=== PATIENT | female | born 2000 | race Hispanic/Latino ===

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

== ENCOUNTER 2020-04-22 21:33 | Emergency (ER) | payer BC, SELFPAY ==
--- OUTSIDE RECORDS SUMMARY | 2020-04-22 21:35 | XMS REPORT | Continuity of Care Document ---
:2000 Author Organization [facility] t Address [address] [place] [address] Care Team Providers Name Role Phone Brianne Guerrero Attending Clinician Pob1, Acute [facility] Attending Clinician Unavailable Ce Connell Attending [...] Facility Department ID 2019-07-20 2019-07-20 Letter Ariel [facility] [id number] [id number] 00:00:00 00:00:00 (Out) [facility] [id number] [place] [id number] [place] [phone] nal 044 [address] 2019-07-20 2019-07-20 Telephone TALON George [id number] 00:00:00 00:00:00 [facility] [id number] [place] [id number] [place] [phone] nal 044 [address] 2019-07-19 2019-07-19 Urgent Pob1, Acute [facility] [id number] 08:36:26 09:24:[id number] [place] [id number] [facility] [phone] nal 044 [address] 2018-11-15 2018-11-15 Emergency [facility] [id number] 11:07:44 12:26:00 Lisa Cardenas [id number] [place] [id number] [place] [phone] Results This patient has no known results.
[2020-04-22] MEDS ORDERED: ALBUTEROL INHALER 60 PUFF/8 GM IH ONE (23:28)
[2020-04-22] MEDS ORDERED: dexAMETHasone 10 MG/ML VIAL ONE (23:28)
[2020-04-22] MEDS ORDERED: HYDROCODONE/CHLORPHEN 5 ML/OSYR ONE (23:28)
[2020-04-23 00:11] LABS: SARS-COV-2 RT PCR POSITIVE (NEGATIVE)
--- NOTE | 2020-04-23 00:15 | EDPHYS ---
Physician Documentation [facility] Name: Jasmina Campbell Age: 19 yrs Sex: Female : 2000 Arrival Date: 04/22/2020 Time: 21:33 Bed 7 Private MD: ED Physician Venkat Bonds HPI: 04/22 23:06 This 19 yrs old Female presents to ER via Ambulatory with complaints of pm1 Shortness Of Breath. 23:06 The patient or guardian reports cough, with no sputum. Onset: The symptoms/episode pm1 began/occurred 3 day(s) ago. Severity of symptoms: in the emergency department the symptoms are unchanged. Modifying factors: The symptoms are alleviated by nothing, the symptoms are aggravated by nothing. Associated signs and symptoms: Pertinent positives: subjective fever, body aches, Pertinent negatives: diarrhea, ear ache, nausea, vomiting. The patient has not experienced similar symptoms in the past. The patient has not recently seen a physician. 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 - Social history:: Smoking status: Smoking status: Patient/guardian denies using tobacco, Patient/guardian denies using alcohol, street drugs. ROS: 23:06 Back: Negative for injury and pain, : Negative for injury, bleeding, discharge, and pm1 swelling, MS/Extremity: Negative for injury and deformity, Skin: Negative for injury, rash, and discoloration. 23:06 Neuro: Negative for headache, weakness, numbness, tingling, and seizure. 23:06 Constitutional: Positive for subjective fever. 23:06 ENT: Positive for sore throat, Negative for ear pain. 23:06 Cardiovascular: Positive for chest pain, with cough, Negative for palpitations. 23:06 Respiratory: Positive for cough, shortness of breath. 23:06 Abdomen/GI: Positive for nausea, Negative for vomiting, diarrhea, constipation. Exam: 23:06 Constitutional: This is a well developed, well nourished patient who is awake, alert, pm1 and in no acute distress. Head/Face: Normocephalic, atraumatic. ENT: Nares patent. No nasal discharge, no septal abnormalities noted. Tympanic membranes are normal and external auditory canals are clear. Oropharynx with no redness, swelling, or masses, exudates, or evidence of obstruction, uvula midline. Mucous membranes moist. 23:06 Skin: Warm, dry with normal turgor. Normal color with no rashes, no lesions, and no evidence of cellulitis. MS/ Extremity: Pulses equal, no cyanosis. Neurovascular intact. Full, normal range of motion. 23:06 Cardiovascular: Exam negative for acute changes, Rate: normal, Rhythm: Pulses: no pulse deficits are appreciated. 23:06 Respiratory: Exam negative for acute changes, respiratory distress, shortness of breath, Breath sounds: are clear throughout. 23:06 Neuro: Exam negative for acute changes, Orientation: is normal, Mentation: is normal, Motor: is normal, Gait: is steady, at a normal pace, without difficulty. Vital Signs: 21:52 BP 124 / 94; Pulse 98; Resp 19; Temp 98.5; Pulse Ox 96% ; Weight 90.72 kg; Height 5 ft. rr5 3 in. (160.02 cm); Pain 6/10; 04/23 00:27 BP 120 / 80; Pulse 89; Resp 18; Pulse Ox 97% on R/A; mg2 04/22 21:52 Body Mass Index 35.43 (90.72 kg, 160.02 cm) rr5 MDM: 04/22 22:52 Patient medically screened. pm1 04/23 00:12 Data reviewed: vital signs. Data interpreted: Pulse oximetry: on room air is 96 %. pm1 Interpretation: normal. Counseling: I had a detailed discussion with the patient and/or guardian regarding: the historical points, exam findings, and any diagnostic results supporting the discharge/admit diagnosis, lab results, radiology results, the need for outpatient follow up, to return to the emergency department if symptoms worsen or persist or if there are any questions or concerns that arise at home. 04/22 23:04 Order name: COVID-19 pm1 04/22 23:04 Order name: Flu pm1 04/22 23:04 Order name: Strep; Complete Time: 23:51 pm1 04/22 23:51 Order name: Throat Culture EDMS 04/22 23:04 Order name: CXR XRAY pm1 04/22 23:04 Order name: Droplet/Contact Precautions; Complete Time: 23:04 pm1 04/22 23:04 Order name: Labs collected and sent; Complete Time: 23:04 pm1 04/22 23:04 Order name: O2 Per Protocol; Complete Time: 23:04 pm1 04/23 00:12 Order name: COVID-19/FLU A+B; Complete Time: 00:16 EDMS Administered Medications: 04/22 23:17 Drug: Albuterol HFA Inhaler 2 puffs Route: Inhalation; mg2 04/23 00:10 Follow up: Response: No adverse reaction mg2 04/22 23:18 Drug: Tussionex Pennkinetic ER 5 ml Route: PO; mg2 04/23 00:10 Follow up: Response: No adverse reaction mg2 04/22 23:18 Drug: Decadron 10 mg Route: IM; Site: right deltoid; mg2 04/23 00:10 Follow up: Response: No adverse reaction mg2 Disposition: 04:04 Co-signature as Attending Physician, Venkat Bonds MD did not see or evaluate patient. ps1 Signature for administrative purposes. . Disposition: 04/23/20 00:15 Discharged to Home. Impression: Coronavirus infection, unspecified, Acute upper respiratory infection, unspecified. - Condition is Stable. - Discharge Instructions: COVID-19. - Prescriptions for Albuterol Sulfate 90 mcg/actuation - inhale 1-2 puff by INHALATION route every 4-6 hours; 1 Inhaler. Guaifenesin AC 10- 100 mg/5 mL Oral Liquid - take 10 milliliter by ORAL route every 4 hours As needed; 240 milliliter. Zofran 4 mg Oral Tablet - take 1 tablet by ORAL route every 12 hours As needed; 20 tablet. - Medication Reconciliation Form, Thank You Letter, Antibiotic Education, Prescription Opioid Use, Work release form form. - Follow up: Emergency Department; When: As needed; Reason: Worsening of condition. Follow up: Private Physician; When: 2 - 3 days; Reason: Recheck today's complaints, Continuance of care, Re-evaluation by your physician. - Problem is new. - Symptoms have improved. Signatures: Dispatcher [employer] [facility] Jose Roberto Villagomez, POCKET CUTTER POCKET CUTTER pm1 Venkat Bonds MD MD ps1 Narayan Marino RN RN mg2 Larry Elias RN RN rr5 Corrections: (The following items were deleted from the chart) 04/22 23:24 23:05 CORONAVIRUS ordered. [facility] 23:24 23:05 Influenza Screen (A ordered. [facility] 04/23 00:27 00:15 04/23/2020 00:15 Discharged to Home. Impression: Coronavirus infection, mg2 unspecified; Acute upper respiratory infection, unspecified. Condition is Stable. Forms are Medication Reconciliation Form, Thank You Letter, Antibiotic Education, Prescription Opioid Use. Follow up: Emergency Department; When: As needed; Reason: Worsening of condition. Follow up: Private Physician; When: 2 - 3 days; Reason: Recheck today's complaints, Continuance of care, Re-evaluation by your physician. Problem is new. Symptoms have improved. pm1
--- NOTE | 2020-04-23 00:15 | ER ---
Nurse's Notes [facility] Name: Jasmina Campbell Age: 19 yrs Sex: Female : 2000 Arrival Date: 04/22/2020 Time: 21:33 Bed 7 Private MD: Diagnosis: Coronavirus infection, unspecified;Acute upper respiratory infection, unspecified Presentation: 04/22 21:52 Chief complaint: Patient states: I am having trouble breathing , chest pain, headache, rr5 cough and nauseous started 3 days ago. been tested positive for COIVD 3 weeks ago. Coronavirus screen: Client denies travel out of the [place] in the last 14 days. cough unrelated to allergies, fatigue, fever, shortness of breath, Client presents with at least one sign or symptom that may indicate coronavirus-19. Standard/surgical mask placed on the client. Provider contacted for isolation considerations. Client reports previous positive COVID test result. Ebola Screen: Patient negative for fever greater than or equal to 101.5 degrees Fahrenheit, and additional compatible Ebola Virus Disease symptoms Patient denies exposure to infectious person. Patient denies travel to an Ebola-affected area in the 21 days before illness onset. Initial Sepsis Screen: Does the patient meet any 2 criteria? HR > 90 bpm. No. Patient's initial sepsis screen is negative. Does the patient have a suspected source of infection? Yes: Productive cough/pneumonia. Risk Assessment: Do you want to hurt yourself or someone else? Patient reports no desire to harm self or others. Onset of symptoms was April 19, 2020. 21:52 Method Of Arrival: Ambulatory rr5 21:52 Acuity: LEFTY 3 rr5 Triage Assessment: 22:46 General: Appears in no apparent distress. comfortable, Behavior is calm, cooperative. mg2 Respiratory: Onset: The symptoms/episode began/occurred gradually, the patient has mild shortness of breath. 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 - Social history:: Smoking status: Smoking status: Patient/guardian denies using tobacco, Patient/guardian denies using alcohol, street drugs. Screenin:45 Abuse screen: Denies threats or abuse. Denies injuries from another. Nutritional mg2 screening: No deficits noted. Tuberculosis screening: No symptoms or risk factors identified. Fall Risk None identified. Assessment: 22:45 General: Appears in no apparent distress. comfortable, Behavior is calm, cooperative. mg2 Pain: Complains of pain in chest. Neuro: Level of Consciousness is awake, alert, obeys commands, Oriented to person, place, time, situation. Cardiovascular: Capillary refill < 3 seconds Patient's skin is warm and dry. Respiratory: Airway is patent Respiratory effort is even, unlabored, Respiratory pattern is regular, symmetrical. Respiratory: Reports shortness of breath. GI: No signs and/or symptoms were reported involving the gastrointestinal system. : No signs and/or symptoms were reported regarding the genitourinary system. EENT: No signs and/or symptoms were reported regarding the EENT system. Derm: Skin is intact, is healthy with good turgor, Skin is pink, warm \T\ dry. normal. Musculoskeletal: Circulation, motion, and sensation intact. Capillary refill < 3 seconds. Vital Signs: 21:52 BP 124 / 94; Pulse 98; Resp 19; Temp 98.5; Pulse Ox 96% ; Weight 90.72 kg; Height 5 ft. rr5 3 in. (160.02 cm); Pain 6/10; 04/23 00:27 BP 120 / 80; Pulse 89; Resp 18; Pulse Ox 97% on R/A; mg2 04/22 21:52 Body Mass Index 35.43 (90.72 kg, 160.02 cm) rr5 ED Course: 04/22 21:33 Patient arrived in ED. cl3 21:55 Triage completed. rr5 21:56 Arm band placed on right wrist. rr5 22:44 Narayan Marino, JOSE is Primary Nurse. mg2 22:45 Patient has correct armband on for positive identification. mg2 22:46 No provider procedures requiring assistance completed. mg2 22:52 Jose Roberto Villagomez NP is PHCP. pm1 22:52 Venkat Bonds MD is Attending Physician. pm1 23:20 CXR XRAY In Process Unspecified. EDMS 04/23 00:27 Patient did not have IV access during this emergency room visit. mg2 Administered Medications: 04/22 23:17 Drug: Albuterol HFA Inhaler 2 puffs Route: Inhalation; mg2 04/23 00:10 Follow up: Response: No adverse reaction mg2 04/22 23:18 Drug: Tussionex Pennkinetic ER 5 ml Route: PO; mg2 04/23 00:10 Follow up: Response: No adverse reaction mg2 04/22 23:18 Drug: Decadron 10 mg Route: IM; Site: right deltoid; mg2 04/23 00:10 Follow up: Response: No adverse reaction mg2 Outcome: 00:15 Discharge ordered by MD. pm1 00:27 Discharged to home ambulatory. mg2 00:27 Condition: good 00:27 Discharge instructions given to patient, Instructed on discharge instructions, follow up and referral plans. medication usage, Demonstrated understanding of instructions, follow-up care, medications, Prescriptions given X 3. 00:27 Patient left the ED. mg2 Signatures: Dispatcher [employer] EDMS Jose Roberto Villagomez NP KOSHER SEALER pm1 Narayan Marino RN RN mg2 Larry Elias RN RN rr5 Dm Garcia cl3 Corrections: (The following items were deleted from the chart) 04/22 21:57 21:52 Chief complaint: Patient states: I am having trouble breathing , headache, cough rr5 and nauseous started 3 days ago. been tested positive for COIVD 3 weeks ago rr5
[2020-04-23 00:38] VITALS: TEMP 98.5
[2020-04-23 00:44] VITALS: BP 120/80; O2SAT 97
--- NOTE | 2020-04-23 06:56 | RAD REPORT ---
EXAM DESCRIPTION: RAD - Chest Single View - 04/22/2020 11:21 pm CLINICAL HISTORY: Cough;SOB, COVID positive 3 weeks earlier COMPARISON: Portable October 19 TECHNIQUE: AP portable chest image was obtained 04/22/2020 11:21 pm . FINDINGS: No dense peripheral mass or consolidation. No failure or volume overload. No definitive fi ndings that would indicate a COVID-19 pneumonia. Very mild ground-glass opacities can be occult on a shallow inspiration portable exam. Follow-up CT imaging could be obtained if it would alter medical m anagement. Trachea is midline. Heart and vasculature are normal. No measurable pleural effusion and n o pneumothorax. No acute bony abnormality seen. No acute aortic findings suspected. IMPRESSION: No acute cardiopulmonary process. No definitive evidence for a COVID-19 pneumonia. If clinically warranted, CT imaging of the chest cou ld be obtained to more sensitively assess the lung parenchyma.
== END 2020-04-23 00:27 | disposition home or self-care (01) ==
LOC: ER 21:33
DX: U07.1 COVID-19 (principal); J06.9 Acute upper respiratory infection, unspecified
CPT/HCPCS: 87070; 87081; 0240U; 71045; J1100; 96372; 99284

== ENCOUNTER 2020-06-10 23:36 | Emergency (ER) | payer BC ==
--- OUTSIDE RECORDS SUMMARY | 2020-06-10 23:39 | XMS REPORT | Continuity of Care Document ---
:2000 Author Organization [facility] t Address [address] [place] [address] Care Team Providers Name Role Phone Brianne [...] Facility Department ID 2019-07-20 2019-07-20 Letter Ariel NETALYA [id number] 00:00:00 00:00:00 (Out) [facility] [id number] [place] [id number] [place] [phone] nal 0[address] 2019-07-20 2019-07-20 Telephone TALON George [id number] 00:00:00 00:00:00 [facility] [id number] [place] [id number] Alec [phone] nal 0[address] 2019-07-19 2019-07-19 Urgent Pob1, Acute [facility] [id number] 08:36:26 09:24:02 [place] [id number] [place] [id number] [facility] [phone] nal 044 [address] 2018-11-15 2018-11-[address] [facility] [id number] 11:07:44 12:26:00 Lisa Cardenas [id number] [place] [id number] [place] [phone] [phone] Results This patient has no known results.
--- NOTE | 2020-06-11 02:58 | ER ---
Nurse's Notes [facility] Name: Jasmina Campbell Age: 19 yrs Sex: Female : 2000 Arrival Date: 06/11/2020 Time: 00:29 Bed External Waiting Private MD: Diagnosis: Presentation: 06/11 00:50 Note unable to locate patient at this time. sg 01:35 Chief complaint: Headache and dizziness at this time. Coronavirus screen: Client denies sg travel out of the [place] in the last 14 days. was COVID positive in 03/2020 per pt hx. Ebola Screen: Patient negative for fever greater than or equal to 101.5 degrees Fahrenheit, and additional compatible Ebola Virus Disease symptoms Patient denies exposure to infectious person. Patient denies travel to an Ebola-affected area in the 21 days before illness onset. No symptoms or risks identified at this time. Initial Sepsis Screen: Does the patient meet any 2 criteria?. Risk Assessment: Do you want to hurt yourself or someone else? Patient reports no desire to harm self or others. Onset of symptoms was June 11, 2020. Care prior to arrival: None. Transition of care: patient was not received from another setting of care. 01:35 Method Of Arrival: Ambulatory sg 01:35 Acuity: LEFTY 3 sg Historical: - Allergies: 00:44 No Known Allergies; sg - PMHx: 00:44 COVID; sg - PSHx: 00:44 None; sg ED Course: 00:29 Patient arrived in ED. am4 01:30 Arm band placed on. sg 02:05 Triage completed. sg Administered Medications: No medications were administered Outcome: 02:57 Patient left the ED. sg Signatures: Lazarus Limon, RN RN Zhanna Johnson am4
== END 2020-06-11 02:57 | disposition left against medical advice (07) ==
LOC: ER 23:36
DX: Z02.9 Encounter for administrative examinations, unspecified (principal)
CPT/HCPCS: 99281

== ENCOUNTER 2020-06-11 13:08 | Emergency (ER) | payer BC ==
--- OUTSIDE RECORDS SUMMARY | 2020-06-11 13:10 | XMS REPORT | Continuity of Care Document ---
:2000 Author Organization [facility] t Address [address] [place] [address] Care Team Providers Name Role Phone Brianne [...] Facility Department ID 2019-07-20 2019-07-20 Letter Ariel AZTALYA [id number] 00:00:00 00:00:00 (Out) [facility] [id number] [place] [id number] [place] [phone] nal 044 [address] 2019-07-20 2019-07-20 Telephone TALON George [id number] 00:00:00 00:00:00 [facility] [id number] [place] [id number] Alec [phone] nal 044 [address] 2019-07-19 2019-07-19 Urgent Pob1, Acute [facility] [id number] 08:36:26 09:24:02 [place] [id number] [place] [id number] [facility] [phone] nal 044 [address] 2018-11-15 2018-11-15 Emergency [facility] [id number] 11:07:44 12:26:00 Lisa Cardenas [id number] [place] [id number] [place] [phone] Results This patient has no known results.
[2020-06-11 17:34] LABS: Absolute Lymphocytes (CBC) 2.2 K/uL (0.7-4.9); Basophils % 0.6 % (0-1.3); Hematocrit 43.7 % (36.0-45.0); Lymphocytes % 30.9 % (15.3-44.8); MPV 9.3 fL (7.6-11.3); RBC Red Blood Cell Count 4.84 M/uL (3.86-4.86)
--- NOTE | 2020-06-11 18:07 | RAD REPORT ---
EXAM DESCRIPTION: US - Abdomen Exam Limited - 06/11/2020 6:00 pm CLINICAL HISTORY: ABD PAIN COMPARISON: No comparisons FINDINGS: The gallbladder demonstrates no gallstones. No pericholecystic fluid or gallbladder wall t hickening. The common bile duct is normal measuring 5 mm. The liver demonstrates no findings of intrahepatic biliary dilatation. IMPRESSION: Unremarkable examination.
--- NOTE | 2020-06-11 18:15 | RAD REPORT ---
EXAM DESCRIPTION: RAD - Chest Single View - 06/11/2020 5:07 pm CLINICAL HISTORY: CHEST PAIN Chest pain. COMPARISON: Chest Single View dated 04/22/2020; Chest Single View dated 10/20/2019; Chest Single View dated 07/03/2018 FINDINGS: Portable technique limits examination quality. The lungs are grossly clear. The heart is normal in size. No displaced fractures. IMPRESSION: No acute intrathoracic process suspected.
[2020-06-11 18:21] LABS: ALT/SGPT 17 U/L (12-78); AST/SGOT 9 U/L (15-37); Albumin 3.8 g/dL (3.4-5.0); Alkaline Phosphatase 112 U/L (45-117); BUN Blood Urea Nitrogen 6 mg/dL (7-18); Bicarbonate 27 mmol/L (21-32); Bilirubin Direct 0.1 mg/dL (0-0.2); Bilirubin Total 0.4 mg/dL (0.2-1.0); Glucose Level 91 mg/dL (74-106); Lipase 102 U/L (73-393); Magnesium 2.2 mg/dL (1.8-2.4); NT PRO-BNP 55 pg/mL (<125); Potassium 4.1 mmol/L (3.5-5.1); Protein, Total 7.5 g/dL (6.4-8.2); Sodium Level 142 mmol/L (136-145); Troponin (Emerg Dept Use Only) < 0.02 ng/mL (0.0-0.045)
[2020-06-11 18:26] LABS: Barbiturates NEGATIVE (NEGATIVE); Benzodiazepines NEGATIVE (NEGATIVE); Cocaine POSITIVE (NEGATIVE); METHAMPHETAM NEGATIVE (NEGATIVE); Methadone NEGATIVE (NEGATIVE); Opiates NEGATIVE (NEGATIVE); Phencyclidine NEGATIVE (NEGATIVE); THC Cannibis POSITIVE (NEGATIVE)
[2020-06-11 18:27] LABS: Urine Blood 1+ (NEG); Urine Glucose NEGATIVE (NEG); Urine Protein NEGATIVE (NEG); Urine Specific Gravity 1.025 (1.005-1.030); Urine pH 5.5 (5.0-7.0)
--- NOTE | 2020-06-11 18:32 | EDPHYS ---
Physician Documentation [facility] Name: Jasmina Campbell Age: 19 yrs Sex: Female : 2000 Arrival Date: 06/11/2020 Time: 13:11 Bed 3 Private MD: ED Physician Parker Huynh HPI: 06/11 16:56 This 19 yrs old Female presents to ER via Ambulatory with complaints of Near cp Syncope, Breathing Difficulty. 16:56 The patient has experienced near-syncope, almost passed out. Onset: The cp symptoms/episode began/occurred yesterday. Duration: This was a single episode. 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 - Social history:: Smoking status: Patient reports the use of cigarette tobacco products, smokes one-half pack cigarettes per day. ROS: 17:00 Constitutional: Negative for body aches, chills, fever, poor PO intake. cp 17:00 Eyes: Negative for injury, pain, redness, and discharge. cp 17:00 Cardiovascular: Positive for chest pain, Negative for edema. 17:00 Abdomen/GI: Positive for abdominal pain, nausea, Negative for vomiting, diarrhea, constipation. 17:00 : Negative for urinary symptoms, vaginal bleeding, vaginal discharge. 17:00 Neuro: Positive for near syncope, Negative for altered mental status, headache, syncope, weakness. 17:00 All other systems are negative. Exam: 16:40 ECG was reviewed by the Attending Physician. cp 17:05 Constitutional: The patient appears in no acute distress, alert, awake, cp non-diaphoretic, non-toxic, well developed, well nourished. 17:05 Head/Face: Normocephalic, atraumatic. cp 17:05 Eyes: Periorbital structures: appear normal, Conjunctiva: normal, no exudate, no injection, Sclera: no appreciated abnormality, Lids and lashes: appear normal, bilaterally. 17:05 ENT: External ear(s): are unremarkable, Nose: is normal, Posterior pharynx: Airway: no evidence of obstruction, patent. 17:05 Neck: ROM/movement: is normal, is supple, without pain, no range of motions limitations. 17:05 Chest/axilla: Inspection: normal, Palpation: is normal, no crepitus, no tenderness. 17:05 Cardiovascular: Rate: bradycardic, Rhythm: regular, Pulses: Pulses are 2+ in right radial artery and left radial artery. 17:05 Respiratory: the patient does not display signs of respiratory distress, Respirations: normal, no use of accessory muscles, no retractions, labored breathing, is not present, Breath sounds: are clear throughout, no decreased breath sounds. 17:05 Abdomen/GI: Inspection: abdomen appears normal, Bowel sounds: active, all quadrants, Palpation: soft, in all quadrants, mild abdominal tenderness, in the right upper quadrant, rebound tenderness, is not appreciated, involuntary guarding, is not appreciated. Vital Signs: 13:16 BP 115 / 79; Pulse 76; Resp 17; Temp 98.0; Pulse Ox 98% ; Weight 90.72 kg; Height 5 ft. ll1 3 in. (160.02 cm); Pain 0/10; 18:00 BP 121 / 88; Pulse 57; Resp 17; Pulse Ox 100% ; jl7 13:16 Body Mass Index 35.43 (90.72 kg, 160.02 cm) ll1 MDM: 16:23 Patient medically screened. cp 18:30 Data reviewed: vital signs, nurses notes, lab test result(s), EKG, radiologic studies, cp plain films. 18:30 Test interpretation: by ED physician or midlevel provider: ECG, plain radiologic cp studies. Counseling: I had a detailed discussion with the patient and/or guardian regarding: the historical points, exam findings, and any diagnostic results supporting the discharge/admit diagnosis, lab results, radiology results, the need for outpatient follow up, a family practitioner, to return to the emergency department if symptoms worsen or persist or if there are any questions or concerns that arise at home. 06/11 16:46 Order name: Basic Metabolic Panel; Complete Time: 18:28 cp 06/11 18:28 Interpretation: Normal except: CL 109; BUN 6. cp 06/11 16:46 Order name: CBC with Diff; Complete Time: 18:28 cp 06/11 18:28 Interpretation: Normal except: MCV 90.2. cp 06/11 16:46 Order name: LFT's; Complete Time: 18:28 cp 06/11 16:46 Order name: Magnesium; Complete Time: 18:28 cp 06/11 16:46 Order name: NT PRO-BNP; Complete Time: 18:28 cp 06/11 16:46 Order name: PT-INR; Complete Time: 18:28 cp 06/11 16:46 Order name: Troponin (emerg Dept Use Only); Complete Time: 18:28 cp 06/11 16:46 Order name: XRAY Chest (1 view); Complete Time: 18:28 cp 06/11 16:46 Order name: EKG; Complete Time: 16:47 cp 06/11 16:46 Order name: UDS cp 06/11 16:47 Order name: Lipase; Complete Time: 18:28 cp 06/11 17:27 Order name: US Abdomen Limited: RUQ; Complete Time: 18:28 cp 06/11 18:20 Order name: Urine Dipstick--Ancillary (enter results); Complete Time: 18:28 bd 06/11 18:29 Interpretation: Normal except: UBLD 1+; UESTR 1+. cp 06/11 18:21 Order name: Urine --Ancillary (enter results) bd 06/11 16:46 Order name: Cardiac monitoring; Complete Time: 16:53 cp 06/11 16:46 Order name: EKG - Nurse/Tech; Complete Time: 16:53 cp 06/11 16:46 Order name: IV Saline Lock; Complete Time: 17:43 cp 06/11 16:46 Order name: Labs collected and sent; Complete Time: 17:43 cp 06/11 16:46 Order name: O2 Per Protocol; Complete Time: 17:43 cp 06/11 16:46 Order name: O2 Sat Monitoring; Complete Time: 17:43 cp 06/11 16:46 Order name: Urine Dipstick-Ancillary (obtain specimen); Complete Time: 18:24 cp 06/11 16:46 Order name: Urine Test (obtain specimen); Complete Time: 18:24 cp EC:40 Rate is 56 beats/min. Rhythm is regular. RI interval is normal. QRS interval is normal. cp QT interval is normal. Interpreted by me. Reviewed by me. Administered Medications: No medications were administered Disposition: 06/12 08:14 Co-signature as Attending Physician, Parker Huynh MD I agree with the assessment and kdr plan of care. Disposition: 06/11/20 18:31 Discharged to Home. Impression: Other chest pain, Upper abdominal pain, unspecified. - Condition is Stable. - Discharge Instructions: Abdominal Pain, Adult, Nonspecific Chest Pain. - Prescriptions for Ibuprofen 800 mg Oral Tablet - take 1 tablet by ORAL route every 8 hours As needed take with food; 30 tablet. - Medication Reconciliation Form, Thank You Letter, Antibiotic Education, Prescription Opioid Use, Work release form form. - Follow up: Private Physician; When: 2 - 3 days; Reason: Worsening of condition. - Problem is new. - Symptoms have improved. Signatures: Dispatcher [employer] EDMS Parker Huynh MD MD kdr Mikey Quinones PA PA cp Ceasar Hale, RN RN jl7 Jordyn Garcia RN RN ll1 Corrections: (The following items were deleted from the chart) 06/11 18:38 18:31 06/11/2020 18:31 Discharged to Home. Impression: Other chest pain; Upper jl7 abdominal pain, unspecified. Condition is Stable. Forms are Work release form, Medication Reconciliation Form, Thank You Letter, Antibiotic Education, Prescription Opioid Use. Follow up: Private Physician; When: 2 - 3 days; Reason: Worsening of condition. Problem is new. Symptoms have improved. cp
--- NOTE | 2020-06-11 18:32 | ER ---
Nurse's Notes [facility] Name: Jasmina Campbell Age: 19 yrs Sex: Female : 2000 Arrival Date: 06/11/2020 Time: 13:11 Bed 3 Private MD: Diagnosis: Other chest pain;Upper abdominal pain, unspecified Presentation: 06/11 13:16 Chief complaint: Patient states: SOB and near syncope feeling off/on for 1 week. Had to ll1 leave work yesterday when she felt bad. Needs work release before going back. Coronavirus screen: Client denies travel out of the [place] in the last 14 days. cough unrelated to allergies, difficulty breathing, shortness of breath, Client presents with at least one sign or symptom that may indicate coronavirus-19. Standard/surgical mask placed on the client. Ebola Screen: Patient denies travel to an Ebola-affected area in the 21 days before illness onset. Initial Sepsis Screen: Does the patient meet any 2 criteria? No. Patient's initial sepsis screen is negative. Does the patient have a suspected source of infection? No. Patient's initial sepsis screen is negative. Risk Assessment: Do you want to hurt yourself or someone else? Patient reports no desire to harm self or others. Onset of symptoms was June 04, 2020. 13:16 Method Of Arrival: Ambulatory ll1 13:16 Acuity: LEFTY 3 ll1 Triage Assessment: 13:20 General: Appears in no apparent distress. Behavior is calm, cooperative, appropriate ll1 for age. Pain: Denies pain. Neuro: Level of Consciousness is awake, alert, obeys commands, Oriented to person, place, time, situation, Appropriate for age Moves all extremities. Full function Gait is steady, Speech is normal, Facial symmetry appears normal, Reports near syncope feeling. Cardiovascular: No deficits noted. Respiratory: Reports shortness of breath Airway is patent Trachea midline Respiratory effort is even, unlabored, Respiratory pattern is regular, symmetrical, Onset: The symptoms/episode began/occurred 1 week off/on, the patient has mild shortness of breath. GI: No deficits noted. 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 - Social history:: Smoking status: Patient reports the use of cigarette tobacco products, smokes one-half pack cigarettes per day. Screenin:23 Abuse screen: Denies threats or abuse. Nutritional screening: No deficits noted. tw2 Tuberculosis screening: No symptoms or risk factors identified. Fall Risk None identified. Assessment: 16:23 Reassessment: provider at bedside at this time. tw2 16:30 General: Appears in no apparent distress. uncomfortable, Behavior is calm, cooperative, jl7 appropriate for age. Pain: Complains of pain in anterior aspect of left upper chest Pain radiates to left scapular area, right scapular area and anterior aspect of right upper chest Pain currently is 0 out of 10 on a pain scale. at worst was 7 out of 10 on a pain scale. Quality of pain is described as sharp, shooting, Pain began x 1-2 weeks Is intermittent. Neuro: Level of Consciousness is awake, alert, obeys commands, Oriented to person, place, time, situation. Cardiovascular: Patient's skin is warm and dry. Rhythm is regular. Respiratory: Airway is patent Respiratory effort is even, unlabored, Respiratory pattern is regular, symmetrical. GI: Reports nausea. Derm: Skin is pink, warm \T\ dry. 16:42 Reassessment: ANNA Benton at bedside discussing POC. jl7 16:58 Reassessment: xray at bedside at this time. tw2 17:30 Reassessment: Patient appears in no apparent distress at this time. No changes from jl7 previously documented assessment. Patient and/or family updated on plan of care and expected duration. Pain level reassessed. Patient is alert, oriented x 3, equal unlabored respirations, skin warm/dry/pink. 18:25 Reassessment: ERP at bedside discussing results and POC. jl7 Vital Signs: 13:16 BP 115 / 79; Pulse 76; Resp 17; Temp 98.0; Pulse Ox 98% ; Weight 90.72 kg; Height 5 ft. ll1 3 in. (160.02 cm); Pain 0/10; 18:00 BP 121 / 88; Pulse 57; Resp 17; Pulse Ox 100% ; jl7 13:16 Body Mass Index 35.43 (90.72 kg, 160.02 cm) ll1 ED Course: 13:11 Patient arrived in ED. ds1 13:18 Triage completed. ll1 13:18 Arm band placed on. ll1 16:19 Mikey Quinones PA is PHCP. cp 16:19 Parker Huynh MD is Attending Physician. cp 16:22 Ceasar Hale, RN is Primary Nurse. jl7 16:22 Placed in gown. Bed in low position. Pulse ox on. NIBP on. tw2 17:07 XRAY Chest (1 view) In Process Unspecified. EDMS 18:00 US Abdomen Limited: RUQ In Process Unspecified. EDMS 18:00 Initial lab(s) drawn, by me, sent to lab. Urine collected: clean catch specimen, clear, jl7 EKG done, by ED staff, reviewed by Mikey CASTILLO. Inserted saline lock: 20 gauge in left antecubital area, using aseptic technique. Blood collected. 18:34 No provider procedures requiring assistance completed. IV discontinued, intact, jl7 bleeding controlled, No redness/swelling at site. Pressure dressing applied. Administered Medications: No medications were administered Outcome: 18:31 Discharge ordered by MD. cp 18:34 Discharged to home ambulatory. jl7 18:34 Condition: stable 18:34 Discharge instructions given to patient, Instructed on discharge instructions, follow up and referral plans. medication usage, Demonstrated understanding of instructions, follow-up care, medications, Prescriptions given X 1. 18:38 Patient left the ED. jl7 Signatures: Dispatcher [employer] EDKY Radha Shaw ds1 Mikey Quinones PA PA cp Charissa Monson RN RN tw2 Ceasar Hale RN RN jl7 Jordyn Garcia RN RN ll1 Corrections: (The following items were deleted from the chart) 18:38 18:34 Discharge instructions given to patient, Instructed on discharge instructions, jl7 follow up and referral plans. Demonstrated understanding of instructions, jl7
[2020-06-11 18:43] VITALS: TEMP 98
[2020-06-11 18:44] VITALS: BP 121/88; O2SAT 100
[2020-06-11 19:05] LABS: Urine Specific Gravity 1.025 (1.005-1.030)
--- NOTE | 2020-06-12 16:49 | EKG ---
Test Date: 2020-06-11 Test Time: 15:35:05 Insurance Sales Professional: HANNAH MEASUREMENT RESULTS: Intervals: Rate: 56 LA: 130 QRSD: 62 QT: 422 QTc: 407 [place]: P: 43 LA: 130 QRS: 50 T: 46 INTERPRETIVE STATEMENTS: Sinus bradycardia Otherwise normal ECG Compared to ECG 07/03/2018 23:02:11 Sinus rhythm no longer present Electronically Signed On 06-12-20 16:47:49 CDT by Malik Lopez
== END 2020-06-11 18:38 | disposition home or self-care (01) ==
LOC: ER 13:08
DX: R07.89 Other chest pain (principal); R10.10 Upper abdominal pain, unspecified; F17.210 Nicotine dependence, cigarettes, uncomplicated; Z86.16 Personal history of COVID-19
CPT/HCPCS: 36415; 71045; 76705; 80048; 80076; 80307; 81003; 81025; 83690; 83735; 83880; 84484; 85025; 85610; 93005; 99284